=== PATIENT | female | born 1935 | race Caucasian/White ===

== ENCOUNTER 2017-06-05 08:40 | Emergency (ER) | payer MEDICARE, OTHER ==
[2017-06-05 09:16] VITALS: BP 119/53
--- NOTE | 2017-06-05 09:23 | EDM.PDOC ---
ED HPI GENERAL MEDICAL PROBLEM - General Chief Complaint: General Stated Complaint: WEAK Time Seen by Provider: 06/05/17 09:10 Source of Information: Reports: Patient, Family History Limitations: Reports: Other (History of dementia) - History of Present Illness INITIAL COMMENTS - FREE TEXT/NARRATIVE: Clotilde presents today wit her for complaints of weakness. They were at [employer] today, she felt weak and sat down at [facility]. A fellow [employer]-attendee checked Clotilde out and said they should come to the emergency room. Upon presentation, Clotilde states she feels weak. She denies fever, chills, nausea, vomiting, diarrhea, constipation or recent trauma to her body. He denies the same. Her does state that she does not eat and drink as much as she should. Today she only ate a cookie and drank some juice prior to [facility]. Onset: Today, Sudden Duration: Minutes: Denies Pain Score (Numeric/FACES): 0 - Related Data Allergies Allergy/AdvReac Type Severity Reaction Status Date / Time strawberry [[place]] Allergy Mild rash and Verified 06/05/17 08:55 itching Home Meds: Home Meds Donepezil HCl [Donepezil HCl] 10 mg PO BEDTIME 06/06/13 [History] buPROPion HCl [Wellbutrin Xl] 150 mg PO DAILY 06/06/13 [History] Alendronate Sodium [Fosamax] 70 mg PO WEEKLY 05/09/15 [History] Cholecalciferol (Vitamin D3) [Vitamin D3] 1,000 unit PO DAILY 05/09/15 [History] Fluticasone Propionate [Flovent] 1 puff IH BID 05/09/15 [History] Memantine [Namenda] 5 mg PO DAILY 05/09/15 [History] Multivit with Calcium,Iron,Min [Essential Daily] 1 each PO DAILY 05/09/15 [ History] Past Medical History HEENT History: Reports: Impaired Vision [employer]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: Musculoskeletal History: Reports: Fracture Neurological History: Reports: Other (See Below) Other Neuro History: dementia Psychiatric History: Reports: Depression - Infectious Disease History Infectious Disease History: Reports: Chicken Pox, Measles, Mumps - Past Surgical History GI Surgical History: Reports: Colonoscopy Musculoskeletal Surgical History: Reports: Knee Replacement Other Musculoskeletal Surgeries/Procedures:: fx arm Social & Family History - Tobacco Use Smoking Status *Q: Never Smoker Second Hand Smoke Exposure: No - Caffeine Use Caffeine Use: Reports: Coffee, Soda - Alcohol Use Days Per Week of Alcohol Use: 0 - Recreational Drug Use Recreational Drug Use: No ED ROS GENERAL - Review of Systems Review Of Systems: See Below Constitutional: Reports: Weakness, Fatigue, Decreased Appetite. Denies: Fever, Chills, Night Sweats, Diaphoresis, Weight Loss HEENT: Denies: Ear Pain, Nose Pain, Sinus Problem, Throat Pain, Vertigo, Vision Change Respiratory: Denies: Shortness of Breath, Wheezing, Cough, Sputum, Hemoptysis Cardiovascular: Denies: Chest Pain, Blood Pressure Problem, Dyspnea on Exertion , Edema, Lightheadedness, Orthopnea, Palpitations, PND, Syncope Endocrine: Reports: Fatigue. Denies: Polydypsia, Polyuria GI/Abdominal: Reports: Decreased Appetite. Denies: Abdominal Pain, Constipation , Diarrhea, Difficulty Swallowing, Distension, Hematemesis, Hematochezia, Nausea , Vomiting : Reports: Incontinence. Denies: Discharge, Dysuria, Flank Pain, Hematuria, Pain Musculoskeletal: Reports: No Symptoms Skin: Reports: Dryness. Denies: Bruising, Pruritis, Rash, Erythema, Wound Neurological: Reports: Confusion, Weakness, Other (confusion is no different from base line per her . ). Denies: Dizziness, Headache, Numbness, Paresthesia, Syncope, Tingling, Trouble Speaking, Difficulty Walking, Change in Speech, Gait Disturbance Psychiatric: Reports: Confusion. Denies: Agitation, Anxiety, Cravings, Depression, Mood Lability Hematologic/Lymphatic: Reports: No Symptoms Immunologic: Reports: No Symptoms ED EXAM, GENERAL - Physical Exam Exam: See Below Free Text/Narrative:: Clotilde is an 81 year old female with a history of dementia. She complains of generalized weakness today that caused her to want to sit at [facility]. She denies feelings of syncope, palpitations, SOB, chest pain, headache, diaphoresis , change in bowel or bladder habits. Her reports she does not eat or drink enough. Exam Limited By: Other (Does have a history of dementia, answere questions appropriate) General Appearance: Alert, WD/WN, No Apparent Distress Eye Exam: Bilateral Eye: EOMI, Normal Inspection, PERRL Ears: Normal External Exam, Normal Canal, Hearing Grossly Normal, Normal TMs Ear Exam: Bilateral Ear: Auricle Normal, Canal Normal, TM normal Nose: Normal Inspection, Normal Mucosa, No Blood Throat/Mouth: Normal Inspection, Normal Lips, Normal Gums, Normal Oropharynx, Normal Voice, No Airway Compromise Head: Atraumatic, Normocephalic Neck: Normal Inspection, Supple, Non-Tender, Full Range of Motion. No: Lymphadenopathy (R), Lymphadenopathy (L) Respiratory/Chest: No Respiratory Distress, Lungs Clear, Normal Breath Sounds, No Accessory Muscle Use, Chest Non-Tender Cardiovascular: Normal Peripheral Pulses, Regular Rate, Rhythm, No Edema, No Murmur, No Rub Peripheral Pulses: 2+: Radial (L), Radial (R), Dorsalis Pedis (L), Dorsalis Pedis (R) GI/Abdominal: Normal Bowel Sounds, Soft, Non-Tender, No Distention, No Mass Back Exam: Normal Inspection, Full Range of Motion. No: CVA Tenderness (R), CVA Tenderness (L) Extremities: Normal Inspection, Normal Range of Motion, Non-Tender, No Pedal Edema, Normal Capillary Refill Neurological: Alert, Oriented, CN II-XII Intact, Normal Gait, Normal Reflexes, No Motor/Sensory Deficits, Memory Loss Remote Events, Other (Patient reports no change from baseline. ) Psychiatric: Normal Affect, Normal Mood Skin Exam: Warm, Dry, Intact, Normal Color, No Rash Lymphatic: No Adenopathy EKG INTERPRETATION EKG Date: 06/05/17 Course - Vital Signs Last Recorded V/S: Last Vital Signs Temp 35.0 C L 06/05/17 09:28 Pulse 54 L 06/05/17 09:28 Resp 16 06/05/17 09:28 BP 119/53 L 06/05/17 09:28 Pulse Ox 96 06/05/17 09:28 - Orders/Labs/Meds Orders: Active Orders 24 hr Category Date Time Status EKG Documentation Completion [RC] ASDIRECTED Care 06/05/17 09:19 Active EKG 12 Lead [EK] Routine Ther 06/05/17 09:19 Ordered Labs: Laboratory Tests 06/05/17 06/05/17 06/05/17 Range/Units 09:12 09:25 09:25 WBC 4.0 L (4.5-11.0) K/uL RBC 4.32 (3.30-5.50) M/uL Hgb 13.7 (12.0-15.0) g/dL Hct 42.5 (36.0-48.0) % MCV 98 (80-98) fL MCH 32 H (27-31) pg MCHC 32 (32-36) % Plt Count 160 (150-400) K/uL Neut % (Auto) 59 (36-66) % Lymph % (Auto) 28 (24-44) % Nye % (Auto) 11 H (2-6) % Eos % (Auto) 1 L (2-4) % Baso % (Auto) 1 (0-1) % Sodium 146 (140-148) mmol/L Potassium 3.7 (3.6-5.2) mmol/L Chloride 108 (100-108) mmol/L Carbon Dioxide 31 (21-32) mmol/L Anion Gap 6.7 (5.0-14.0) mmol/L BUN 11 (7-18) mg/dL Creatinine 1.0 (0.6-1.0) mg/dL Est Cr Clr Drug Dosing 42.07 mL/min Estimated GFR (MDRD) 53 L (>60) Glucose 87 (74-106) mg/dL Calcium 8.9 (8.5-10.1) mg/dL Total Bilirubin 0.8 (0.2-1.0) mg/dL AST 14 L (15-37) U/L ALT 15 (12-78) U/L Alkaline Phosphatase 50 (46-116) U/L Total Protein 6.6 (6.4-8.2) g/dL Albumin 3.5 (3.4-5.0) g/dL Globulin 3.1 (2.3-3.5) g/dL Albumin/Globulin Ratio 1.1 L (1.2-2.2) TSH, Ultra Sensitive 5.131 H (0.358-3.740) uIU/mL Urine Color Yellow Urine Appearance Slightly cloudy Urine pH 6.0 (4.5-8.0) Ur Specific [place] 1.020 (1.008-1.030) Urine Protein Negative (NEGATIVE) mg/dL Urine Glucose (UA) Normal (NEGATIVE) mg/dL Urine Ketones Negative (NEGATIVE) mg/dL Urine Occult Blood Negative (NEGATIVE) Urine Nitrite Negative (NEGATIVE) Urine Bilirubin Negative (NEGATIVE) Urine Urobilinogen 1 (NORMAL) mg/dL Ur Leukocyte Esterase Large (NEGATIVE) Urine RBC Not seen (0-5) Urine WBC 10-20 H (0-5) Ur Epithelial Cells Moderate Amorphous Sediment Few Urine Bacteria Moderate Urine Mucus Many Lab work reviewed, patient and her informed of lab values. TSH slightly elevated at 5.131. UA negative nitrite, RBC, occult blood. - Re-Assessments/Exams Free Text/Narrative Re-Assessment/Exam: 06/05/17 09:45 Patient eating breakfast without difficulty, tolerating food, coffee and juice without issues. Departure - Departure Time of Disposition: Disposition: Home, Self-Care 01 Condition: Good Clinical Impression: Elevated TSH, Weakness - Discharge Information Referrals: PCP,None [Primary Care Provider] - Forms: ED Department Discharge Additional Instructions: Clotilde presented to the emergency room today with complaints of weakness. Lab work shows slightly elevated TSH, GFR 53. She is able to eat and drink well. It is best for her to drink plenty of water to help with her kidney function, eat regular meals and report to Loren Bowden DIRECTOR OF RADIO SERVICES/PA this week for recheck. Return to the emergency room for issues or concerns. - My Orders Last 24 Hours: My Active Orders 06/05/17 09:19 EKG Documentation Completion [RC] ASDIRECTED EKG 12 Lead [EK] Routine - Assessment/Plan Last 24 Hours: My Active Orders 06/05/17 09:19 EKG Documentation Completion [RC] ASDIRECTED EKG 12 Lead [EK] Routine Assessment:: Elevated TSH Weakness Decreased GFR at 53 Plan: Clotilde presented to the emergency room today with complaints of weakness. Lab work shows slightly elevated TSH, GFR 53. She is able to eat and drink well. It is best for her to drink plenty of water to help with her kidney function, eat regular meals and report to Loren Bowden DIRECTOR OF RADIO SERVICES/PA this week for recheck. Return to the emergency room for issues or concerns.
== END 2017-06-05 10:29 | disposition home or self-care (01) ==
LOC: JP.ED 08:40
DX: R53.1 Weakness (principal); R79.89 Other specified abnormal findings of blood chemistry; F32.9 Major depressive disorder, single episode, unspecified; F03.90 Unspecified dementia, unspecified severity, without behavioral disturbance, psychotic disturbance, mood disturbance, and anxiety; Z96.659 Presence of unspecified artificial knee joint; Z98.890 Other specified postprocedural states; Z79.899 Other long term (current) drug therapy; Z91.018 Allergy to other foods
CPT/HCPCS: 36415; 80053; 81001; 84443; 85025; 93005; 93010; 99285-25

== ENCOUNTER 2017-12-08 07:26 | Day surgery (SDC) | payer MEDICARE, OTHER ==
[2017-12-08] MEDS ORDERED: Sodium Chloride 0.9% 10 ML Syringe FLUSH PRN (08:30)
[2017-12-08 10:09] VITALS: BP 129/95
--- NOTE | 2017-12-08 13:10 | OR ---
DATE OF PROCEDURE: 12/08/2017 POSTOPERATIVE CARE: Postoperative care will be provided mainly at the [address] [place] [address] Eye [facility] in conjunction with [facility]. PREOPERATIVE DIAGNOSIS: Cataract, left eye. PREOPERATIVE DIAGNOSIS: Cataract, left eye. PROCEDURE: Cataract extraction, phacoemulsification with intraocular lens placement, left eye. ANESTHESIA: Topical and intracameral. ESTIMATED BLOOD LOSS: Minimal. COMPLICATIONS: None. PATHOLOGY SPECIMENS: None. SURGICAL FINDINGS: None. INDICATION FOR PROCEDURE: The patient is an 82-year-old female with history of a visually significant cataract in the left eye, which interfered with activities of daily living. This consisted of a nuclear sclerosis cataract. Following careful discussion of the risks, benefits and alternatives to cataract extraction with intraocular lens placement including blindness and , the patient elected to proceed, and informed, written consent was obtained prior to the procedure. DESCRIPTION OF THE PROCEDURE: The patient was previously identified, and a trung placed above the left eye. All sources, including the patient, indicated that the left eye was the correct eye. The patient was subsequently taken to the operating room where standard monitors were applied. The patient was then prepped and draped in the usual sterile fashion for ophthalmic surgery. Attention was first directed at the 12 o'clock position where a paracentesis port was fashioned. Shugar solution followed by Viscoat was instilled into the eye. Attention was then directed to the 8:30 position where a triplanar incision was made in a near-clear manner using a keratome. A continuous capsulorrhexis was then made using a combination of the cystotome and Utrata forceps. Hydrodissection was achieved using a balanced salt solution, and the lens rotated nicely. Phacoemulsification was then done using a modified [id number] technique without complication. Phaco time was 13.42 CDE. The remaining cortex was removed using the irrigation/aspiration handpiece. Provisc was then instilled into the eye. A Technis lens, model [id number], at 17.0 diopters was then placed in the capsular bag using an [place] injector. The remaining viscoelastic was removed using the irrigation/aspiration forceps. All wounds were then checked and found to be watertight. The lid speculum and drapes were removed. Maxitrol ointment was placed in the patient's left eye, and the eye was shielded. The patient tolerated the procedure well. The patient was instructed to follow up tomorrow. All needle and sponge counts were correct at the end of the procedure. Aleshia Casarez MD /[id number]
== END 2017-12-08 10:25 | disposition home or self-care (01) ==
LOC: JP.SDS 07:26
PROVIDERS: ATTEND Ophthalmology
DX: H26.9 Unspecified cataract (principal); Z91.018 Allergy to other foods
CPT/HCPCS: 66984; C1780; J7050

== ENCOUNTER 2017-12-29 06:40 | Day surgery (SDC) | payer MEDICARE, OTHER ==
[2017-12-29] MEDS ORDERED: Sodium Chloride 0.9% 10 ML Syringe FLUSH PRN (07:00)
[2017-12-29] MEDS ORDERED: Sodium Chloride 0.9% 10 ML Syringe FLUSH ONE (07:00)
[2017-12-29 08:09] VITALS: BP 173/73
--- NOTE | 2017-12-29 08:21 | OR ---
DATE OF PROCEDURE: 12/29/2017 POSTOPERATIVE CARE: Postoperative care will be provided mainly at the [address] [place] [address] [facility] in conjunction with [facility]. PREOPERATIVE DIAGNOSES: 1. Nuclear sclerotic cataract, right eye. 2. Pupillary miosis, right eye. POSTOPERATIVE DIAGNOSES: 1. Nuclear sclerotic cataract, right eye. 2. Pupillary miosis, right eye. PROCEDURE: 1. Phacoemulsification and intraocular lens placement, right eye. 2. Mechanical pupillary dilation with a 7.0 mm Malyugin ring. ANESTHESIA: Topical and intracameral. ESTIMATED BLOOD LOSS: Minimal. COMPLICATIONS: None. PATHOLOGY SPECIMENS: None. SURGICAL FINDINGS: None. INDICATION FOR PROCEDURE: The patient is an 82-year-old female with history of a visually significant cataract in the right eye, which interfered with activities of daily living. This consisted of a nuclear sclerosis cataract. Following careful discussion of the risks, benefits and alternatives to cataract extraction with intraocular lens placement including blindness and , the patient elected to proceed, and informed, written consent was obtained prior to the procedure. DESCRIPTION OF THE PROCEDURE: The patient was previously identified, and a trung placed above the right eye. All sources, including the patient, indicated that the right eye was the correct eye. The patient was subsequently taken to the operating room where standard monitors were applied. The patient was then prepped and draped in the usual sterile fashion for ophthalmic surgery. Attention was first directed at the 12 o'clock position where a paracentesis port was fashioned. Shugar solution followed by Viscoat was instilled into the eye. Attention was then directed to the 8:30 position where a triplanar incision was made in a near-clear manner using a keratome. A 7.0 mm Malyugin ring was gently inserted into the pupillary opening to achieve mechanical dilation. A continuous capsulorrhexis was then made using a combination of the cystotome and Utrata forceps. Hydrodissection was achieved using a balanced salt solution, and the lens rotated nicely. Phacoemulsification was then done using a modified [id number] technique without complication. Phaco time was 11.22 CDE. The remaining cortex was removed using the irrigation/aspiration handpiece. Provisc was then instilled into the eye. A Technis lens, model [id number], at 17.5 diopters was then placed in the capsular bag using an [place] injector. The Malyugin ring was gently removed from the eye. The remaining viscoelastic was removed using the irrigation/aspiration forceps. All wounds were then checked and found to be watertight. The lid speculum and drapes were removed. Maxitrol ointment was placed in the patient's right eye, and the eye was shielded. The patient tolerated the procedure well. The patient was instructed to follow up tomorrow. All needle and sponge counts were correct at the end of the procedure. Aleshia Casarez MD /[id number]
== END 2017-12-29 08:28 | disposition home or self-care (01) ==
LOC: JP.SDS 06:40
PROVIDERS: ATTEND Ophthalmology
DX: H25.11 Age-related nuclear cataract, right eye (principal); H57.03 Miosis
CPT/HCPCS: 66982; C1780; J7050

== ENCOUNTER 2018-11-11 21:38 | Emergency (ER) | payer MEDICARE, BC ==
[2018-11-11 21:58] VITALS: BP 140/47
--- NOTE | 2018-11-11 22:23 | EDM.PDOC ---
ED HPI GENERAL MEDICAL PROBLEM - General Chief Complaint: Head Injury Stated Complaint: FALL VIA NORTH Time Seen by Provider: 11/11/18 22:16 Source of Information: Reports: Patient, Family, RN Notes Reviewed History Limitations: Reports: Physical Impairment - History of Present Illness INITIAL COMMENTS - FREE TEXT/NARRATIVE: 82-year-old female presents emergency department day [facility], she has a history of dementia lost her balance fell backwards ended up hitting the back of her head she does complain of headache no other complaints denies pain Pain Score (Numeric/FACES): 0 - Related Data Allergies Allergy/AdvReac Type Severity Reaction Status Date / Time strawberry [[place]] Allergy Mild rash and Verified 11/11/18 21:45 itching Home Meds: Home Meds Donepezil HCl 10 mg PO BEDTIME 06/06/13 [History] Memantine [Namenda] 5 mg PO DAILY 05/09/15 [History] Citalopram Hydrobromide [Celexa] 20 mg PO DAILY 12/06/17 [History] Acetaminophen [Acetaminophen Extra Strength] 1,000 mg PO BEDTIME 07/24/18 [ History] Warfarin Sodium 5 mg PO DAILY 11/11/18 [History] Past Medical History HEENT History: Reports: Cataract, Impaired Vision Cardiovascular History: Reports: None Gastrointestinal History: Reports: None Genitourinary History: Reports: Urinary Incontinence 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: Musculoskeletal History: Reports: Fracture, Other (See Below) Other Musculoskeletal History: hip fx unknown side Neurological History: Reports: Other (See Below) Other Neuro History: dementia Psychiatric History: Reports: Dementia, Depression Hematologic History: Reports: Anticoagulation Therapy - Infectious Disease History Infectious Disease History: Reports: C-Difficile, Mumps - Past Surgical History Head Surgeries/Procedures: Reports: None HEENT Surgical History: Reports: Cataract Surgery Cardiovascular Surgical History: Reports: Vascular Surgery GI Surgical History: Reports: Colonoscopy Musculoskeletal Surgical History: Reports: Knee Replacement Other Musculoskeletal Surgeries/Procedures:: fx arm Social & Family History - Family History Family Medical History: Noncontributory - Tobacco Use Smoking Status *Q: Never Smoker - Caffeine Use Caffeine Use: Reports: Coffee - Recreational Drug Use Recreational Drug Use: No ED ROS GENERAL - Review of Systems Review Of Systems: ROS reveals no pertinent complaints other than HPI. ED EXAM, HEAD INJURY - Physical Exam Exam: See Below Text/Narrative:: No tenderness to shoulders wrists elbows bilaterally pelvic rock's is negative no tenderness to knees ankles bilaterally Exam Limited By: Physical Impairment General Appearance: Alert, No Apparent Distress Head: Normocephalic, Scalp Hematoma. No: Facial Tenderness, Raccoon Eyes Nexus Criteria: No: Posterior, Midline Cervical Tenderness, Evidence of Intoxication, Altered Level of Consciousness, Focal Neurological Deficit, Painful Distraction Injuries Eyes: Bilateral Eye: Normal Inspection Ears: Normal External Exam, Normal Canal, Hearing Grossly Normal, Normal TMs Throat/Mouth: Normal Inspection, Normal Lips, Normal Teeth, Normal Gums, Normal Oropharynx, Normal Voice, No Airway Compromise Neck: Non-Tender, Full Range of Motion, Normal Alignment, Normal Inspection Respiratory: No Respiratory Distress, Lungs Clear, Normal Breath Sounds, No Accessory Muscle Use Cardiovascular: Regular Rate, Rhythm, No Murmur GI/Abdominal Exam: Soft, Non-Tender Course - Vital Signs Last Recorded V/S: Last Vital Signs Temp 97.9 F 11/11/18 21:58 Pulse 74 11/11/18 21:58 Resp 14 11/11/18 21:58 BP 140/47 L 11/11/18 21:58 Pulse Ox 95 11/11/18 21:58 Departure - Departure Time of Disposition: 23:08 Disposition: DC/Tfer to Therapy Director Care 63 Condition: Fair Clinical Impression: Head injury Qualifiers: Encounter type: initial encounter Qualified Code(s): S09.90XA - Unspecified injury of head, initial encounter - Discharge Information Referrals: Jim Nassar 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 [Primary Care Provider] - Forms: ED Department Discharge Additional Instructions: Follow head injury guidelines, follow-up with your primary care as needed call return to the emergency department worsening of symptoms - Assessment/Plan Plan: Assessment Acuity = acute Site and laterality = head trauma with scalp hematoma Etiology = secondary to a fall Manifestations = [none Location of injury = Home Lab values = CT scan describes a hematoma above no head bleed is noted Plan No change in medication discharged back to jail This note was dictated using [employer] recognition software please call with any questions on syntax or grammar.
--- NOTE | 2018-11-11 22:49 | CRLCT ---
CLINICAL INDICATION: Head injury. Anticoagulants. TECHNIQUE: Axial CT cuts were performed from the skull base to the vertex. COMPARISON: 02/20/2012. FINDINGS: There is a left parietal scalp contusion. There is mild cerebral atrophy. There is mild patchy reduced attenuation within date hemispheric white matter bilaterally consistent with age related small-vessel ischemic demyelination. There is no intracranial mass, hemorrhage, infarction or contusion. There is no midline shift or transtentorial herniation. The calvarium is intact. The visualized paranasal sinuses and orbits appear normal. IMPRESSION: 1. Small left parietal scalp contusion. No other traumatic abnormality. 2. Mild age related changes of the brain. Please note that all CT scans at this facility use dose modulation, iterative reconstruction, and/or weight-based dosing when appropriate to reduce radiation dose to as low as reasonably achievable. Dictated by Iain Panda MD @ Nov 11 2018 10:45PM Signed by Dr. Iain Panda @ Nov 11 2018 10:48PM
== END 2018-11-11 23:33 ==
LOC: JP.ED 21:38
DX: S09.90XA Unspecified injury of head, initial encounter (principal); Z91.018 Allergy to other foods; Z79.899 Other long term (current) drug therapy; Z79.01 Long term (current) use of anticoagulants; W18.39XA Other fall on same level, initial encounter; Y92.129 Unspecified place in nursing home as the place of occurrence of the external cause
CPT/HCPCS: 70450; 99285-25

== ENCOUNTER 2019-07-02 09:29 | Emergency (ER) | payer MEDICARE, BC ==
[2019-07-02 09:36] VITALS: BP 141/62; PULSE 60
--- NOTE | 2019-07-02 09:37 | EDM.PDOC ---
ED HPI GENERAL MEDICAL PROBLEM - General Chief Complaint: Laceration Stated Complaint: FELL ON FLOOR Time Seen by Provider: 07/02/19 09:37 Source of Information: Reports: Patient History Limitations: Reports: No Limitations - History of Present Illness INITIAL COMMENTS - FREE TEXT/NARRATIVE: pt has been in the memory unit at [facility]. She was found sitting on the floor. She did not know what happened. She had bleeding from the back of her head and had swelling where she hit her head. Onset: Today, Sudden Duration: Hour(s): Location: Reports: Head Associated Symptoms: Reports: No Other Symptoms - Related Data Allergies Allergy/AdvReac Type Severity Reaction Status Date / Time strawberry [[place]] Allergy Mild rash and Verified 07/02/19 09:49 itching Home Meds: Home Meds Citalopram Hydrobromide [Celexa] 20 mg PO DAILY 12/06/17 [History] Acetaminophen [Acetaminophen Extra Strength] 1,000 mg PO BEDTIME 07/24/18 [ History] Divalproex Sodium 250 mg PO DAILY 07/02/19 [History] Donepezil HCl 10 mg PO DAILY 07/02/19 [History] Furosemide 20 mg PO DAILY 07/02/19 [History] Loperamide [Imodium] 2 mg PO ASDIRECTED 07/02/19 [History] Memantine [Namenda] 10 mg PO DAILY 07/02/19 [History] Mirtazapine 7.5 mg PO DAILY 07/02/19 [History] Potassium Chloride 10 meq PO DAILY 07/02/19 [History] Past Medical History HEENT History: Reports: Cataract, Impaired Vision Cardiovascular History: Reports: None Gastrointestinal History: Reports: None Genitourinary History: Reports: Urinary Incontinence 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: Musculoskeletal History: Reports: Fracture, Other (See Below) Other Musculoskeletal History: hip fx unknown side Neurological History: Reports: Other (See Below) Other Neuro History: dementia Psychiatric History: Reports: Dementia, Depression Hematologic History: Reports: Anticoagulation Therapy - Infectious Disease History Infectious Disease History: Reports: C-Difficile, Mumps - Past Surgical History Head Surgeries/Procedures: Reports: None HEENT Surgical History: Reports: Cataract Surgery Cardiovascular Surgical History: Reports: Vascular Surgery GI Surgical History: Reports: Colonoscopy Musculoskeletal Surgical History: Reports: Knee Replacement Other Musculoskeletal Surgeries/Procedures:: fx arm Social & Family History - Family History Family Medical History: Noncontributory - Caffeine Use Caffeine Use: Reports: Coffee ED ROS GENERAL - Review of Systems Review Of Systems: See Below Constitutional: Reports: No Symptoms HEENT: Reports: No Symptoms, Other (pt did have a blow to the head. ) Respiratory: Reports: No Symptoms Cardiovascular: Reports: No Symptoms Endocrine: Reports: No Symptoms GI/Abdominal: Reports: No Symptoms : Reports: No Symptoms Musculoskeletal: Reports: No Symptoms Skin: Reports: No Symptoms ED EXAM, SKIN/RASH Exam: See Below Text/Narrative:: pt had a blow to the back of the head,. She did have some bleeding present. There were 2 areas of abrasion present This is the area that is bleeding. She has swelling around the site. . Exam Limited By: No Limitations General Appearance: Alert, No Apparent Distress, Anxious, Other (pupils are equal and reactive. ) Ears: Normal TMs Nose: Normal Inspection Throat/Mouth: Normal Inspection Head: Other ( there are 2 areas of abrasion. There is swelling around the site. She is alert and at her baseline. She is normally confused. ) Neck: Normal Inspection Respiratory/Chest: No Respiratory Distress Cardiovascular: Regular Rate, Rhythm GI/Abdominal: Soft, Non-Tender (Female) Exam: Deferred Rectal (Female) Exam: Deferred Back Exam: Normal Inspection Extremities: Other (pt was walked back and forth to the BR and she was not uncomfortable. ) Neurological: Normal Cognition Psychiatric: Other (pt is normally confused. ) Course - Vital Signs Last Recorded V/S: Last Vital Signs Temp 36.4 C 07/02/19 09:52 Pulse 60 07/02/19 09:52 Resp 12 07/02/19 09:52 BP 141/62 H 07/02/19 09:52 Pulse Ox 95 07/02/19 09:52 - Orders/Labs/Meds Labs: Laboratory Tests 07/02/19 07/02/19 07/02/19 Range/Units 09:34 09:46 09:46 WBC 6.0 (4.5-11.0) K/uL RBC 3.89 (3.30-5.50) M/uL Hgb 12.6 (12.0-15.0) g/dL Hct 39.9 (36.0-48.0) % MCV 103 H (80-98) fL MCH 32 H (27-31) pg MCHC 32 (32-36) % Plt Count 142 L (150-400) K/uL Neut % (Auto) 73 H (36-66) % Lymph % (Auto) 19 L (24-44) % [place] % (Auto) 7 H (2-6) % Eos % (Auto) 1 L (2-4) % Baso % (Auto) 1 (0-1) % PT (9.5-12.0) sec INR (0.80-1.20) Sodium 144 (140-148) mmol/L Potassium 4.0 (3.6-5.2) mmol/L Chloride 107 (100-108) mmol/L Carbon Dioxide 29 (21-32) mmol/L Anion Gap 7.9 (5.0-14.0) mmol/L BUN 21 H (7-18) mg/dL Creatinine 0.9 (0.6-1.0) mg/dL Est Cr Clr Drug Dosing 44.98 mL/min Estimated GFR (MDRD) 60 (>60) Glucose 117 H (74-106) mg/dL Calcium 8.8 (8.5-10.1) mg/dL Total Bilirubin 0.6 (0.2-1.0) mg/dL AST 19 (15-37) U/L ALT 14 (12-78) U/L Alkaline Phosphatase 62 (46-116) U/L Total Protein 6.4 (6.4-8.2) g/dL Albumin 3.2 L (3.4-5.0) g/dL Globulin 3.2 (2.3-3.5) g/dL Albumin/Globulin Ratio 1.0 L (1.2-2.2) TSH, Ultra Sensitive (0.358-3.740) uIU/mL Urine Color Yellow (YELLOW) Urine Appearance Clear (CLEAR) Urine pH 6.5 (5.0-8.0) Ur Specific [place] 1.020 (1.008-1.030) Urine Protein Negative (NEGATIVE) mg/dL Urine Glucose (UA) Negative (NEGATIVE) mg/dL Urine Ketones Negative (NEGATIVE) mg/dL Urine Occult Blood Trace-intact H (NEGATIVE) Urine Nitrite Negative (NEGATIVE) Urine Bilirubin Negative (NEGATIVE) Urine Urobilinogen 2.0 H (0.2-1.0) EU/dL Ur Leukocyte Esterase Negative (NEGATIVE) Urine RBC 0-5 (0-5) Urine WBC 0-5 (0-5) Ur Epithelial Cells Few Amorphous Sediment Not seen Urine Bacteria Few Urine Mucus Not seen 07/02/19 07/02/19 Range/Units 09:46 09:48 WBC (4.5-11.0) K/uL RBC (3.30-5.50) M/uL Hgb (12.0-15.0) g/dL Hct (36.0-48.0) % MCV (80-98) fL MCH (27-31) pg MCHC (32-36) % Plt Count (150-400) K/uL Neut % (Auto) (36-66) % Lymph % (Auto) (24-44) % [place] % (Auto) (2-6) % Eos % (Auto) (2-4) % Baso % (Auto) (0-1) % PT 11.4 (9.5-12.0) sec INR 1.06 (0.80-1.20) Sodium (140-148) mmol/L Potassium (3.6-5.2) mmol/L Chloride (100-108) mmol/L Carbon Dioxide (21-32) mmol/L Anion Gap (5.0-14.0) mmol/L BUN (7-18) mg/dL Creatinine (0.6-1.0) mg/dL Est Cr Clr Drug Dosing mL/min Estimated GFR (MDRD) (>60) Glucose (74-106) mg/dL Calcium (8.5-10.1) mg/dL Total Bilirubin (0.2-1.0) mg/dL AST (15-37) U/L ALT (12-78) U/L Alkaline Phosphatase (46-116) U/L Total Protein (6.4-8.2) g/dL Albumin (3.4-5.0) g/dL Globulin (2.3-3.5) g/dL Albumin/Globulin Ratio (1.2-2.2) TSH, Ultra Sensitive 3.953 H (0.358-3.740) uIU/mL Urine Color (YELLOW) Urine Appearance (CLEAR) Urine pH (5.0-8.0) Ur Specific [place] (1.008-1.030) Urine Protein (NEGATIVE) mg/dL Urine Glucose (UA) (NEGATIVE) mg/dL Urine Ketones (NEGATIVE) mg/dL Urine Occult Blood (NEGATIVE) Urine Nitrite (NEGATIVE) Urine Bilirubin (NEGATIVE) Urine Urobilinogen (0.2-1.0) EU/dL Ur Leukocyte Esterase (NEGATIVE) Urine RBC (0-5) Urine WBC (0-5) Ur Epithelial Cells Amorphous Sediment Urine Bacteria Urine Mucus - Re-Assessments/Exams Free Text/Narrative Re-Assessment/Exam: 07/02/19 12:06 pt had a clear urine. Her chems were good. Her cat scan of the head was normal. Departure - Departure Time of Disposition: 11:58 Disposition: Home, Self-Care 01 Condition: Fair Clinical Impression: Contusion of occipital region of scalp - Discharge Information Referrals: Jim Nassar NP [Primary Care Provider] - Forms: ED Department Discharge Care Plan Goals: continue same meds. , rtc if problem. Head scan was neg.
--- NOTE | 2019-07-02 10:39 | CT ---
Head wo Cont CLINICAL HISTORY: Posterior head trauma COMPARISON: November 08, 2018 TECHNIQUE: Transverse scans were obtained from the base of the skull through the vertex without IV contrast on a multislice, multidetector CT scanner. Auto dosage reduction and iterative reconstruction techniques employed. FINDINGS: No focal abnormal parenchymal densities are identified. There is no mass effect, hemorrhage, or extraaxial collection. The basal cisterns and sulci over the convexities are prominent. The ventricles are prominent. Calvarium appears intact. There is a high posterior scalp hematoma the midline. IMPRESSION: High posterior scalp hematoma Moderate age-related atrophic changes No acute intracranial abnormality is identified
== END 2019-07-02 12:18 | disposition home or self-care (01) ==
LOC: JP.ED 09:29
DX: S00.03XA Contusion of scalp, initial encounter (principal); F32.9 Major depressive disorder, single episode, unspecified; Z79.899 Other long term (current) drug therapy; Z91.018 Allergy to other foods; W22.8XXA Striking against or struck by other objects, initial encounter; Y92.89 Other specified places as the place of occurrence of the external cause
CPT/HCPCS: 36415; 70450; 70450-26; 80053; 81001; 84443; 85025; 85610; 99283-25

== ENCOUNTER 2021-07-04 10:43 | Emergency (ER) | payer MEDICARE, BC ==
--- NOTE | 2021-07-04 11:50 | EDM.PDOC ---
ED HPI GENERAL MEDICAL PROBLEM - General Chief Complaint: Syncope Stated Complaint: MEDICAL VIA [place]TH Time Seen by Provider: 07/04/21 11:42 Source of Information: Reports: Patient, Family, RN Notes Reviewed History Limitations: Reports: Physical Impairment - History of Present Illness INITIAL COMMENTS - FREE TEXT/NARRATIVE: 85-year-old female presents emergency department today with complaint of syncope. She arrives via EMS services she is a resident of the memory care unit at [facility]. Family states her mental status is about normal for her per report is that was found by the aid to be unresponsive and noncommunicative was then taken to the ground. However the story is difficult to follow as where she unresponsive in a chair or standing. - Related Data Allergies Allergy/AdvReac Type Severity Reaction Status Date / Time strawberry [[place]] Allergy Mild rash and Verified 07/04/21 10:53 itching Home Meds: Home Meds Citalopram Hydrobromide [Celexa] 20 mg PO DAILY 12/06/17 [History] Acetaminophen [Acetaminophen Extra Strength] 650 mg PO BID 07/24/18 [History] Divalproex Sodium 250 mg PO DAILY 07/02/19 [History] Donepezil HCl 10 mg PO DAILY 07/02/19 [History] Loperamide [Imodium] 2 mg PO ASDIRECTED 07/02/19 [History] Memantine [Namenda] 10 mg PO DAILY 07/02/19 [History] Mirtazapine 7.5 mg PO DAILY 07/02/19 [History] polyethylene glycoL 3350 [MiraLAX] 17 gm PO DAILY 07/04/21 [History] Past Medical History HEENT History: Reports: Cataract, Impaired Vision Cardiovascular History: Reports: None Gastrointestinal History: Reports: None Genitourinary History: Reports: Urinary Incontinence 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: Musculoskeletal History: Reports: Fracture, Other (See Below) Other Musculoskeletal History: hip fx unknown side Neurological History: Reports: Other (See Below) Other Neuro History: dementia Psychiatric History: Reports: Dementia, Depression Hematologic History: Reports: Anticoagulation Therapy - Infectious Disease History Infectious Disease History: Reports: C-Difficile, Mumps - Past Surgical History Head Surgeries/Procedures: Reports: None HEENT Surgical History: Reports: Cataract Surgery Cardiovascular Surgical History: Reports: Vascular Surgery GI Surgical History: Reports: Colonoscopy Neurological Surgical History: Reports: None Musculoskeletal Surgical History: Reports: Knee Replacement Other Musculoskeletal Surgeries/Procedures:: fx arm Dermatological Surgical History: Reports: None Social & Family History - Family History Family Medical History: No Pertinent Family History - Tobacco Use Tobacco Use Status *Q: Never Tobacco User - Caffeine Use Caffeine Use: Reports: Coffee - Recreational Drug Use Recreational Drug Use: No ED ROS GENERAL - Review of Systems Review Of Systems: Unable To Obtain Reason Not Obtained: Dementia ED EXAM, GENERAL - Physical Exam Exam: See Below Exam Limited By: Physical Impairment General Appearance: Alert, No Apparent Distress Respiratory/Chest: No Respiratory Distress, Lungs Clear, Normal Breath Sounds, No Accessory Muscle Use, Chest Non-Tender Cardiovascular: Regular Rate, Rhythm, No Murmur GI/Abdominal: Soft, Non-Tender #1 Interpretation EKG Date: 07/04/21 Time: 12:42 Rhythm: NSR [place]: LAD-Left [place] Deviation P-Wave: Present QRS: Normal ST-T: Normal QT: Normal Comparison: No Change Course - Vital Signs Last Recorded V/S: Last Vital Signs Temp 97.1 F 07/04/21 10:49 Pulse 53 L 07/04/21 15:18 Resp 13 07/04/21 15:18 BP 144/62 H 07/04/21 15:18 Pulse Ox 99 07/04/21 15:18 - Orders/Labs/Meds Orders: Active Orders 24 hr Category Date Time Status CULTURE URINE [RM] Urgent Lab 07/04/21 16:28 Ordered EKG 12 Lead [EK] Urgent Ther 07/04/21 11:47 Ordered Labs: Laboratory Tests 07/04/21 07/04/21 07/04/21 Range/Units 12:01 12:01 12:01 WBC 5.3 (4.5-11.0) K/uL RBC 4.19 (3.30-5.50) M/uL Hgb 13.2 (12.0-15.0) g/dL Hct 41.6 (36.0-48.0) % MCV 99 H (80-98) fL MCH 32 H (27-31) pg MCHC 32 (32-36) % Plt Count 154 (150-400) K/uL Neut % (Auto) 62.3 (36-66) % Lymph % (Auto) 27.7 (24-44) % [place] % (Auto) 8.3 H (2-6) % Eos % (Auto) 1.1 L (2-4) % Baso % (Auto) 0.6 (0-1) % Sodium 146 (140-148) mmol/L Potassium 4.7 (3.6-5.2) mmol/L Chloride 107 (100-108) mmol/L Carbon Dioxide 33 H (21-32) mmol/L Anion Gap 10.7 (5.0-14.0) mmol/L BUN 19 H (7-18) mg/dL Creatinine 0.8 (0.6-1.0) mg/dL Est Cr Clr Drug Dosing 47.25 mL/min Estimated GFR (MDRD) > 60 (>60) Glucose 89 (74-106) mg/dL Lactic Acid 1.8 (0.4-2.0) mmol/L Calcium 8.7 (8.5-10.1) mg/dL Total Bilirubin 0.4 (0.2-1.0) mg/dL AST 11 L (15-37) U/L ALT 11 L (12-78) U/L Alkaline Phosphatase 53 (46-116) U/L Troponin I < 0.017 (0.000-0.056) ng/mL Total Protein 5.6 L (6.4-8.2) g/dL Albumin 3.0 L (3.4-5.0) g/dL Globulin 2.6 (2.3-3.5) g/dL Albumin/Globulin Ratio 1.2 (1.2-2.2) Urine Color (YELLOW) Urine Appearance (CLEAR) Urine pH (5.0-8.0) Ur Specific [place] (1.008-1.030) Urine Protein (NEGATIVE) mg/dL Urine Glucose (UA) (NEGATIVE) mg/dL Urine Ketones (NEGATIVE) mg/dL Urine Occult Blood (NEGATIVE) Urine Nitrite (NEGATIVE) Urine Bilirubin (NEGATIVE) Urine Urobilinogen (0.2-1.0) EU/dL Ur Leukocyte Esterase (NEGATIVE) Urine RBC (0-5) Urine WBC (0-5) Ur Epithelial Cells Amorphous Sediment Urine Bacteria Urine Mucus 07/04/21 Range/Units 16:08 WBC (4.5-11.0) K/uL RBC (3.30-5.50) M/uL Hgb (12.0-15.0) g/dL Hct (36.0-48.0) % MCV (80-98) fL MCH (27-31) pg MCHC (32-36) % Plt Count (150-400) K/uL Neut % (Auto) (36-66) % Lymph % (Auto) (24-44) % [place] % (Auto) (2-6) % Eos % (Auto) (2-4) % Baso % (Auto) (0-1) % Sodium (140-148) mmol/L Potassium (3.6-5.2) mmol/L Chloride (100-108) mmol/L Carbon Dioxide (21-32) mmol/L Anion Gap (5.0-14.0) mmol/L BUN (7-18) mg/dL Creatinine (0.6-1.0) mg/dL Est Cr Clr Drug Dosing mL/min Estimated GFR (MDRD) (>60) Glucose (74-106) mg/dL Lactic Acid (0.4-2.0) mmol/L Calcium (8.5-10.1) mg/dL Total Bilirubin (0.2-1.0) mg/dL AST (15-37) U/L ALT (12-78) U/L Alkaline Phosphatase (46-116) U/L Troponin I (0.000-0.056) ng/mL Total Protein (6.4-8.2) g/dL Albumin (3.4-5.0) g/dL Globulin (2.3-3.5) g/dL Albumin/Globulin Ratio (1.2-2.2) Urine Color Yellow (YELLOW) Urine Appearance Turbid A (CLEAR) Urine pH 7.0 (5.0-8.0) Ur Specific [place] 1.025 (1.008-1.030) Urine Protein Negative (NEGATIVE) mg/dL Urine Glucose (UA) Negative (NEGATIVE) mg/dL Urine Ketones 15 H (NEGATIVE) mg/dL Urine Occult Blood Negative (NEGATIVE) Urine Nitrite Negative (NEGATIVE) Urine Bilirubin Negative (NEGATIVE) Urine Urobilinogen >=8.0 H (0.2-1.0) EU/dL Ur Leukocyte Esterase Trace H (NEGATIVE) Urine RBC 0-5 (0-5) Urine WBC 5-10 H (0-5) Ur Epithelial Cells Not seen Amorphous Sediment Not seen Urine Bacteria Many Urine Mucus Not seen Departure - Departure Time of Disposition: 16:30 Disposition: DC/Tfer to [place] [id number] Reason for Transfer *Q: Other Condition: Fair Clinical Impression: Urinary tract infection Qualifiers: Urinary tract infection type: acute cystitis Hematuria presence: without hematuria Qualified Code(s): N30.00 - Acute cystitis without hematuria Instructions: Urinary Tract Infection, Adult, [id number] Referrals: Jim Nassar NP [Primary Care Provider] - Forms: ED Department Discharge Additional Instructions: Take full course of antibiotics, please followup with your primary care provider in 3-5 days if not better, please call return to the emergency department with worsening of symptoms. Sepsis Event Note (ED) - Evaluation Sepsis Screening Result: No Definite Risk - Focused Exam Vital Signs: Vital Signs Temp Pulse Resp BP Pulse Ox 07/04/21 15:18 53 L 13 144/62 H 99 07/04/21 14:32 54 L 12 141/39 H 99 07/04/21 12:28 58 L 10 L 116/59 L 97 07/04/21 10:49 97.1 F 58 L 12 124/52 L 95 - My Orders Last 24 Hours: My Active Orders 07/04/21 11:47 EKG 12 Lead [EK] Urgent 07/04/21 16:28 CULTURE URINE [RM] Urgent - Assessment/Plan Last 24 Hours: My Active Orders 07/04/21 11:47 EKG 12 Lead [EK] Urgent 07/04/21 16:28 CULTURE URINE [RM] Urgent Plan: Assessment Acuity = acute Site and laterality = urinary tract infection complicated with syncope patient with known history of dementia Etiology = suspicious for bacterial cause urinary tract infection did not contribute to syncope unknown Manifestations = none Location of injury = Home Lab values = CBC CMP troponin within normal limits EKG demonstrates sinus rhythm no change from prior EKG urinalysis does have 5-10 WBCs consistent with pyuria cultures pending Plan Elected to treat empirically Bactrim DS 1 tab p.o. twice daily x3 days will contact with culture results follow-up primary care 3 to 5 days if not better This note was dictated using [employer] recognition software please call with any questions on syntax or grammar.
[2021-07-04 15:18] VITALS: BP 144/62; PULSE 53
== END 2021-07-04 16:44 ==
LOC: JP.ED 10:43
DX: N30.00 Acute cystitis without hematuria (principal); F03.90 Unspecified dementia, unspecified severity, without behavioral disturbance, psychotic disturbance, mood disturbance, and anxiety; Z91.018 Allergy to other foods; Z79.01 Long term (current) use of anticoagulants; Z79.899 Other long term (current) drug therapy
CPT/HCPCS: 36415; 80053; 81001; 83605; 84484; 85025; 87086; 87088; 93005; 99285-25